=== PATIENT | female | born 1965 | race American Indian/Alaskan Native ===

== ENCOUNTER 2018-01-27 07:39 | Outpatient (CLI) | payer BC ==
--- NOTE | 2018-01-27 16:24 | Mammography Report ---
BILATERAL DIGITAL SCREENING MAMMOGRAM with CAD: 01/27/18 07:39:00 CLINICAL: Routine screening. COMPARISON: 06/04/10 FINDINGS: The breasts are mostly fatty.No mass, architectural distortion or suspicious calcifications. IMPRESSION: No mammographic evidence of malignancy. BI-RADS CATEGORY: 1 -- Negative RECOMMENDATION: Routine mammographic screening in one year. COMMENT: Patient follow-up letters are generated by our [employer] application.
== END 2018-01-27 07:40 | disposition home or self-care (01) ==
LOC: SPVWC 07:39
PROVIDERS: ATTEND Internal Medicine
DX: Z12.31 Encounter for screening mammogram for malignant neoplasm of breast (principal)
CPT/HCPCS: 77067

== ENCOUNTER 2019-02-02 10:39 | Outpatient (CLI) | payer BC ==
--- NOTE | 2019-02-08 12:31 | Mammography Report ---
BILATERAL DIGITAL SCREENING MAMMOGRAM WITH CAD INDICATION: Routine screening mammography. TECHNIQUE: Digital bilateral 2D mammography was obtained in the craniocaudal and mediolateral obliq ue projections. This examination was interpreted with the benefit of Computer-Aided Detection analysi s. COMPARISON: 01/27/2018 FINDINGS: Breast Density: The breasts are almost entirely fatty. There is no evidence of dominant mass, suspicious calcifications or architectural distortion in eith er breast. IMPRESSION:No mammographic evidence of malignancy. BI-RADS Category 1: Negative. No mammographic evidence of malignancy. Recommend routine screening m ammography in one year. A "normal" or negative report should not discourage follow up or biopsy of a clinically significant f inding. A written summary of these findings will be mailed to the patient. The patient will be entered into a mammography reporting system which will generate a reminder letter for the patient's next appointmen t at the appropriate interval. The [employer] recommends yearly mammograms starting at age 40 and continuing as l diane as a woman is in good health. Breast MRI is recommended for women with an approximate 20-25% or greater lifetime risk of breast cancer, including women with a strong family history of breast or ova jonel cancer or who have been treated for Hodgkin's disease. Signer Name: Omid Leal MD Signed: 02/08/2019 12:26 PM Workstation Name: [id number]
== END 2019-02-02 10:40 | disposition home or self-care (01) ==
LOC: SPVWC 10:39
PROVIDERS: ATTEND Internal Medicine
DX: Z12.31 Encounter for screening mammogram for malignant neoplasm of breast (principal)
CPT/HCPCS: 77067